=== PATIENT | female | born 1955 | race Caucasian/White ===

== ENCOUNTER 2021-09-21 21:48 | Emergency (ER) | payer OTHER ==
[~2021-09-21] VITALS: Ht 157.5 cm; Wt 104.8 kg
--- NOTE | 2021-09-21 22:49 | NUR ---
BIBSON C/O FLU LIKE SYMPTOMS X3DAYS. PT A/OX4. TOLERATING R/A WELL AT 98%. COUGH AND CONGESTION NOTED. PT AMBULATORY WITH STEADY GAIT.
[2021-09-21] MEDS ORDERED: PSEUDOEPHEDRINE HCL 30 MG TABLET PO ONE (23:00)
[2021-09-21] MEDS ORDERED: GUAIFENESIN/D-METHORPHAN HB 5 ML UDC PO ONE (23:00)
[2021-09-21] MEDS ORDERED: GUAIFENESIN/D-METHORPHAN HB 5 ML UDC ONE (23:02)
[2021-09-21] MEDS ORDERED: PSEUDOEPHEDRINE HCL 30 MG TABLET ONE (23:02)
--- NOTE | 2021-09-21 23:09 | NUR ---
COVID ANTIGEN AND INFLUENZA SWAB COLLECTED AND SENT TO LAB
--- NOTE | 2021-09-21 23:59 | NUR ---
XRAY AT BEDSIDE
[2021-09-22] MEDS ORDERED: Paxlovid PO (00:50)
[2021-09-22] MEDS ORDERED: PSEU120T83 PO (00:53)
[2021-09-22] MEDS ORDERED: BENZ-13 PO (00:53)
[2021-09-22] MEDS ORDERED: GUAI1TBM19 PO (00:53)
[2021-09-22 01:15] VITALS: BP 145/70
--- NOTE | 2021-09-22 01:15 | NUR ---
Patient discharged to home in stable condition. Written and verbal after care instructions given. Patient verbalizes understanding of instruction.
== END 2021-09-22 01:15 | disposition home or self-care (01) ==
LOC: ER 22:01
DX: U07.1 COVID-19 (principal); I10 Essential (primary) hypertension; E11.9 Type 2 diabetes mellitus without complications
CPT/HCPCS: 71045; 87426; 87804; 99284; C9803